=== PATIENT | female | born 1965 | race Caucasian/White ===

== ENCOUNTER → 2020-07-09 | Outpatient (CLI) | payer OTHER ==
[~2020-07-09] MED LIST: AMITIZA24 MCG PO; ASPIRIN325 MG PO; ATIVAN0.5 MG PO; ATORVASTATIN CA10 MG PO; BUSPIRONE HCL10 MG PO; CHANTIX1 MG PO; CLONAZEPAM1 MG PO; COSENTYX (150 MG/1 M SQ; CYCLOBENZAPRINE10 MG PO; CYMBALTA 30 MG30 MG PO; DICYCLOMINE HCL20 MG PO; EFFEXOR XR 150150 MG PO; ESCITALOPRAM OX20 MG PO; ESTRACE1 MG PO; FLEXERIL 10 MG10 MG PO; HYDROCHLOROTH12.5 MG PO; IBU800 MG PO; IBUPROFEN800 MG PO; IMDUR ER TAB 3030 MG PO; INDOCIN 50 MG C50 MG PO; ISOSORBIDE MONO30 MG PO; KEFLEX CAP 500500 MG PO; KEFLEX500 MG PO; KLONOPIN0.5 MG PO; LEVOTHYROXINE150 MCG PO; LEVOTHYROXINE200 MC1 PO; LEVOTHYROXINE200 MC2 PO; LEXAPRO20 MG PO; LINZESS290 MCG PO; LIPITOR TAB 1010 MG PO; LOPRESSOR 25 MG25 MG PO; METHOTREXATE2.5 MG PO; METOPROLOL TART25 MG PO; MINIPRESS2 MG PO; NEURONTIN600 MG PO; NICOTINE PATCH1 EAC5 TD; NITROSTAT 0.40.4 MG SL; NORCO 10-325 T1 EACH PO; OMEPRAZOLE40 MG PO; PERCOCET 10-321 EACH PO; PERCOCET 5-3251 EACH PO; PERCOCET 5/325 T1 EA PO; REQUIP0.25 MG PO; SEROQUEL200 MG PO; SEROQUEL300 MG PO; SIMPONI AR50 MG/4 ML IV; VENLAFAXINE HC225 MG PO; VITAMIN B12-FO1 EACH PO; VITAMIN C 500500 MG PO; VITAMIN C500 M1 PO; VITAMIN D250000 UNIT PO; WELLBUTRIN XL150 MG PO; ZOFRAN4 MG PO
== END ==
LOC: KOH-I 13:15
DX: S92.312D Displaced fracture of first metatarsal bone, left foot, subsequent encounter for fracture with routine healing (principal); S92.352D Displaced fracture of fifth metatarsal bone, left foot, subsequent encounter for fracture with routine healing; Z96.698 Presence of other orthopedic joint implants; X58.XXXD Exposure to other specified factors, subsequent encounter
CPT/HCPCS: 73630

== ENCOUNTER → 2020-07-24 | Outpatient (CLI) | payer OTHER | LOC: KOH-I 11:14 | DX: S92.352K Displaced fracture of fifth metatarsal bone, left foot, subsequent encounter for fracture with nonunion (principal); X58.XXXD Exposure to other specified factors, subsequent encounter; M85.872 Other specified disorders of bone density and structure, left ankle and foot | CPT/HCPCS: 73630 ==

== ENCOUNTER → 2020-08-13 | Outpatient (CLI) | payer OTHER | LOC: KOH-I 10:46 | DX: S92.352K Displaced fracture of fifth metatarsal bone, left foot, subsequent encounter for fracture with nonunion (principal); X58.XXXD Exposure to other specified factors, subsequent encounter | CPT/HCPCS: 73630 ==

== ENCOUNTER → 2021-03-11 | Outpatient (CLI) | payer OTHER | LOC: KOH-I 13:58 | DX: M79.672 Pain in left foot (principal); M79.671 Pain in right foot; M19.072 Primary osteoarthritis, left ankle and foot; M19.071 Primary osteoarthritis, right ankle and foot | CPT/HCPCS: 73630 ==